=== PATIENT | female | born 1985 | race Caucasian/White ===

== ENCOUNTER 2021-10-05 07:37 | Outpatient (CLI) | payer BC, SELFPAY ==
[2021-10-05 08:51] LABS: Cholesterol 162 mg/dL (200); Glucose 110 mg/dL (74-106); High Density Lipoprotein 49 mg/dL; Triglycerides 57 mg/dL; Very Low Density Lipoprotein 11 mg/dL (5-40)
== END 2021-10-05 23:59 | disposition home or self-care (01) ==
LOC: LAB 07:43
PROVIDERS: Referring Provider Family Medicine; Visit Provider Family Medicine
DX: Z02.1 Encounter for pre-employment examination (principal)
CPT/HCPCS: 36415; 80061; 82947

== ENCOUNTER 2022-02-27 15:12 | Emergency (ER) | payer BC, SELFPAY ==
[2022-02-27 15:13] VITALS: BP 144/90; PULSE 88; RESP 15; TEMP 36.2; O2SAT 98; BMI 43.9
--- NOTE | 2022-02-27 15:58 | EX.ED.UPPERE ---
HPI History of Present Illness Chief Complaint: Laceration Informant: patient Occured/Mechanism Comment: Accidentally incised on a broken glass as she was cleaning it at her sink at home Onset/Context/Timing Onset: Today (Just prior to arrival) Timing: Continuous Quality of Pain: - (Sore) Location: Right index finger Current Severity: Mild Maximum Severity: Mild Worsened by: Palpation Relieved by: Leaving alone Associated Symptoms Associated Symptoms: Negative for Parasthesia, Weakness or Loss of Funtion Narrative Narrative: [id number] accidentally cut her finger. Tetanus Immunization: >10 years [facility] Medical History (Updated 02/27/22 @ 16:[address] Keron Merida MD) Anxiety Depression Allergy/AdvReac Type Severity Reaction Status Date / Time Penicillins [PCN] Allergy NEEDS Verified 02/27/22 15:13 FOLLOW-UP Social History Smoking Status: Current every day smoker tobacco type: cigarettes ROS ROS ED Constitutional Constitutional ED: Denies chills or fever(s) Musculoskeletal Musculoskeletal: Reports extremity pain; Denies neck pain Integumentary Reports wounds; Denies Abrasions or rash Neurologic Neurologic: Denies paresthesias or weakness EXAM Physical Exam Const Vital Signs: 02/27/22 15:13 Temperature 97.2 F L Temperature Source Temporal Pulse Rate 88 Respiratory Rate 15 Blood Pressure 144/90 H Blood Pressure Mean 108 Pulse Ox 98 Oxygen Delivery Method Room Air Positive well nourished and well developed General Appearance ED: well developed and NAD Neck full ROM and supple Back/Spine normal ROM and normal to inspection Extremity full ROM Extremity Narrative: No bony tenderness throughout right fingers/hand Neuro oriented x3, no focal motor deficits and no sensory deficits noted Sensorium / Orientation: alert Psych mental status grossly normal and thought process normal Skin Skin Narrative: 3 cm V-shaped clean full-thickness laceration to the dorsum of the right index finger just distal to the PIPJ. Minor venous oozing. Extensor mechanism completely intact, all flexor tendons intact. Rashes: no rashes MDM MDM MDM Narrative Medical decision making narrative: Laceration repaired see the procedure note. No x-ray needed. No foreign material seen in the laceration. Her tetanus is out of date, this is not a high risk tetanus wound, she declines an update at this time and will get it later. Procedures Lacerations R index finger: Length: 3 cm Depth: Fascia Shape: Flap Prep: Sterile Conditions and Chlorhexadine Laceration repair: Irrigated, Lidocaine (1%, 1cc), Lidocaine with epi (topical LET), Local and Skin sutures Number of Sutures/[place]: 7 Suture Information: Ethilon, Simple and 4-0 Comment: Wound inspected prior to repair, extensor tendon is visible but fascia overlying it intact Discharge Plan Triage Chief Complaint: Laceration ED Provider: Keron Merida Dx/Rx/DC Orders Clinical Impression: Laceration of right index finger Instructions: ED Laceration, Hand: All Closures Referrals: Doctor,Your [STAFF PHYSICIAN] - 10 Day for suture removal Disposition Disposition: Home, Self Care
[2022-02-27] MEDS: Lidocaine/Epi/Tetracaine 50 ML 1 APPLIC TOPICAL (16:08)
[2022-02-27] MEDS: Lidocaine 1% (20 ml mdv) 20 ML Vial INFILT (16:08)
[2022-02-27 18:10] VITALS: BP 133/106; PULSE 84; RESP 16; O2SAT 98
== END 2022-02-27 18:14 | disposition home or self-care (01) ==
PROVIDERS: Emergency Provider Emergency Medicine; Visit Provider Emergency Medicine
DX: S61.210A Laceration without foreign body of right index finger without damage to nail, initial encounter (principal); F17.210 Nicotine dependence, cigarettes, uncomplicated; W25.XXXA Contact with sharp glass, initial encounter; Y93.G1 Activity, food preparation and clean up
CPT/HCPCS: 12002; 99283